=== PATIENT | female | born 1970 | race Caucasian/White ===

== ENCOUNTER 2024-11-23 03:10 | Observation (INO) ==
[2024-11-23 03:47] LABS: Appearance Urine Clear (Clear); Glucose Urine UA Negative (Negative)
[2024-11-23] MEDS: ACETAMINOPHEN 1,000 MG/100 ML VIAL IV STA (03:47)
[2024-11-23] MEDS: HYDROmorphone INJ 0.5 MG/0.5 ML SYR IV STA (03:48)
[2024-11-23] MEDS: ALUMINUM/MAGNESIUM SUSP 30 ML UDC PO STA (03:48)
[2024-11-23 03:49] LABS: Hematocrit (blood only) 40.0 % (37.0-47.0); Hemoglobin 14.3 g/dl (12.0-16.0); Immature Granulocytes # (auto) 0.10 K/uL (0.01-0.20); Immature Granulocytes % (auto) 0.9 %; Mean Corpuscular Hemoglobin 31.7 pg (25.0-34.0); Mean Corpuscular Volume 88.7 fL (80.0-100.0); Platelet Count 280 K/uL (130-400); RDW Standard Deviation 42.1 fL (36.4-46.3); Red Blood Count 4.51 M/uL (4.20-5.40); White Blood Count 11.62 K/ul (4.8-10.8)
[2024-11-23] MEDS: OPTIRAY 320 100ml IV ONE ×2 (03:59→08:51)
--- NOTE | 2024-11-23 04:01 | Emergency Department Note ---
Impression & Plan Continuous severe abdominal pain, Abdominal pain ED Provider Note NAME: GHAZAL DAIGLE AGE: 54 SEX: F : 1970 ARRIVES VIA: Walk-In INFORMANT: Patient, ED PROVIDER(S): Alejandra Camara MD CHIEF COMPLAINT: Abdominal pain HPI: This is a 54-year-old female presenting for left abdominal pain. Patient states she has been to the hospital 2 times previously with negative workup. She has had persistent pain for about 3 weeks. She notes sharp pain to the left upper quadrant that is persistent. No change with eating or drinking. She had been discharged on oxycodone from outside hospital. She had negative CT imaging over the past 3 weeks. Otherwise she is here because the pain is severe. She reports no nausea, vomiting with this. No shortness of breath or chest pain. No diarrhea, constipation. ROS: See above HPI for pertinent positives & negatives. A total of 10 systems reviewed and were otherwise negative. PAST MEDICAL HISTORY: See Below PAST SURGICAL HISTORY: See Below FAMILY HISTORY: See Below SOCIAL HISTORY: See Below HOME MEDICATIONS: See Below ALLERGIES: See Below VITALS: See Below PHYSICAL EXAMINATION: General: resting comfortably in no acute distress Head: Normocephalic and atraumatic Eyes: Normal inspection, extraocular muscles intact Ear, nose, throat: Normal external exam Neck: Normal range of motion Respiratory: lungs clear to auscultation bilaterally Cardiovascular: Regular rate/rhythm, no murmur GI: soft, left mid abdominal pain, no rebound Extremities: nontender, moves all extremities Neuro: The patient awake and alert, appropriately conversive, no focal deficits, symmetric faces Skin: Warm, dry, and intact MEDICAL DECISION MAKING: This is a 54-year-old female present for left abdominal pain. Patient has pain in the mid abdomen on the left side. No right upper quadrant tenderness, Shipley sign. Consider diverticulitis, appendicitis, cholecystitis, volvulus, SBO. - Slight hyponatremia is noted. Otherwise no significant lab normalities. -Urinalysis reveals signs of possible UTI/contamination -CT imaging reveals multiple findings including uterine fibroid, poss pelvic congestion syndrome, as well as small bowel loop thickening concerning for infectious/inflammatory etiology. Read does state need for dedicated further evaluation with CT/MR enterography -Due to patient's persistent pain despite pain medication including Tylenol, Maalox, Dilaudid, will admit the patient for further pain control as well as imaging -Care shows Dr. Smith Differential diagnosis: diverticulitis, appendicitis, cholecystitis, volvulus, SBO. Independent History obtained from: Daughter Diagnostics interpreted by me: ECG: None Cardiac Monitoring: An order was placed for continuous cardiac monitoring. The monitor shows a rate 71 with sinus Past Med/Surg History Problem List (Updated 11/23/24 @ 15:15 by Alejandra Camara MD) Suspected UTI Irritable bowel syndrome Costochondritis, acute Abdominal pain (Acute) Continuous severe abdominal pain (Acute) Social History Smoking Status: Never smoker Hx Alcohol Use: No Hx Substance Use: No Preferred Language: Yemeni Communication Ability: Effective Aluminum Polisher Required: Yes Beliefs That Will Affect Care: None Current Living Situation Comment: lives with brother/grandaughter Other Information That Helps Us Care for You: No Feels Safe at Home: Yes Safety Concerns: Feels Safe At This Time Assistive Devices: None Assistive Devices Comment: reading glasses Allergies Allergies Allergy/AdvReac Type Severity Reaction Status Date / Time No Known Allergies Allergy Unverified 11/23/24 09:39 Home Meds Home Medications Medication Instructions Recorded Confirmed cefpodoxime 200 mg tablet 200 mg PO BID 11/23/24 11/23/24 famotidine 20 mg tablet 20 mg PO DAILY 11/23/24 11/23/24 losartan 25 mg tablet 25 mg PO DAILY 11/23/24 11/23/24 omeprazole 20 mg tablet,delayed 20 mg PO DAILY 11/23/24 11/23/24 release sertraline 25 mg tablet (Zoloft) 25 mg PO DAILY 11/23/24 11/23/24 Results & Data (ED) Vital Signs Vital Signs - 24 hr 11/23/24 03:14 11/23/24 03:27 11/23/24 03:41 Temperature 36.9 C Temperature Source Temporal Artery Scan Pulse Rate 73 71 Pulse Rate [Right Finger] 71 Pulse Rhythm Regular Regular Pulse Strength Normal Respiratory Rate 22 20 20 Respiratory Effort / Characteristics Non-Labored Spontaneous Respiratory Depth Normal Normal Respiratory Pattern Regular Blood Pressure 100/64 Blood Pressure [Left Arm] 115/59 L Blood Pressure Mean 76 Blood Pressure Mean [Left Arm] 77 Blood Pressure Position Sitting Pulse Oximetry 96 95 95 Oxygen Delivery Method Room Air Room Air Room Air Sepsis Recent Fever Within 48 Hours No Sepsis New/Unexplained Change in Mental Status No Sepsis Action Taken by Nursing No Action Required 11/23/24 03:45 11/23/24 05:11 11/23/24 06:00 Temperature Temperature Source Pulse Rate 68 Pulse Rate [Right Finger] 71 71 Pulse Rhythm Pulse Strength Respiratory Rate 16 16 Respiratory Effort / Characteristics Non-Labored Spontaneous Respiratory Depth Normal Normal Respiratory Pattern Regular Blood Pressure Blood Pressure [Left Arm] 139/83 142/88 H Blood Pressure Mean Blood Pressure Mean [Left Arm] 101 106 Blood Pressure Position Pulse Oximetry 95 98 Oxygen Delivery Method Room Air Sepsis Recent Fever Within 48 Hours Sepsis New/Unexplained Change in Mental Status Sepsis Action Taken by Nursing Laboratory Data 11/23/24 03:27 11/23/24 03:27 Lab Results 11/23/24 11/23/24 Range/Units 03:27 03:43 WBC 11.62 H (4.8-10.8) K/ul RBC 4.51 (4.20-5.40) M/uL Hgb 14.3 (12.0-16.0) g/dl POC Hgb 12.9 (12.0-16.0) g/dl Hct 40.0 (37.0-47.0) % POC Hct 38 (37-47) % MCV 88.7 (80.0-100.0) fL MCH 31.7 (25.0-34.0) pg MCHC 35.8 (32.0-36.0) g/dL RDW Std Deviation 42.1 (36.4-46.3) fL RDW Coeff of Rosi 12.8 (11.5-14.5) % Plt Count 280 (130-400) K/uL MPV 9.6 (9.4-12.4) fL Immature Gran % (Auto) 0.9 % Neut % (Auto) 65.4 % Lymph % (Auto) 26.0 % [place] % (Auto) 6.2 % Eos % (Auto) 1.2 % Baso % (Auto) 0.3 % Neut # (Auto) 7.60 H (1.40-6.50) K/uL Lymph # (Auto) 3.02 (1.20-3.40) K/uL [place] # (Auto) 0.72 H (0.11-0.59) K/uL Eos # (Auto) 0.14 (0.00-0.50) K/uL Baso # (Auto) 0.04 (0.00-0.20) K/uL Immature Gran # (Auto) 0.10 (0.01-0.20) K/uL POC Sodium 132 L (135-144) mmol/L Sodium 131 L (136-145) mmol/L POC Potassium 3.7 (3.3-5.0) mmol/L Potassium 3.9 (3.5-5.1) mmol/L POC Chloride 100 L (101-112) mmol/L Chloride 100 (98-107) mmol/L Carbon Dioxide 24 (21-32) mmol/L POC Total CO2 22 L (24-31) mmol/L Anion Gap 7 (3-11) POC Anion Gap 14.0 L (16-25) mmol/L POC BUN 29 H (7-18) mg/dl BUN 29 H (6-23) mg/dl Creatinine 0.99 (0.6-1.2) mg/dl POC Creatinine 1.0 (0.6-1.3) mg/dl Est Cr Clr Drug Dosing 60.1 ml/min eGFR 67.34 BUN/Creatinine Ratio 29.3 H (10-20) Glucose 95 (70-99(Fasting)) mg/dl POC Glucose (other) 99 (70-99) mg/dl Calcium 9.0 (8.6-10.3) mg/dl POC Ioniz Calcium [place] 1.18 (1.12-1.32) mmol/l Total Bilirubin 0.3 (0.2-1.0) mg/dl AST 19 (13-39) U/L ALT 21 (7-52) U/L Alkaline Phosphatase 85 (34-104) U/L Troponin I High Sens 4.2 (0-14) pg/ml Total Protein 6.5 (6.0-8.3) gm/dl Albumin 4.2 (3.4-5.0) gm/dl Globulin 2.3 L (2.5-4.0) gm/dl Albumin/Globulin Ratio 1.8 (0.9-2) Lipase 31 (11-82) U/L Urine Color Yellow Urine Appearance Clear (Clear) Urine pH 6.5 (4.5-7.5) Ur Specific Roll 1.015 (1.000-1.030) Urine Protein Negative (Negative) Urine Glucose (UA) Negative (Negative) Urine Ketones Negative (Negative) Urine Blood Trace-intact H (Negative) Urine Nitrite Negative (Negative) Urine Bilirubin Negative (Negative) Urine Urobilinogen Negative (Negative) Ur Leukocyte Esterase 2+ H (Negative) Urine RBC 3-5 H (0-2) /hpf Urine WBC 11-20 H (0-5) /hpf Ur Epithelial Cells 3-5 H (0-2) /hpf Urine Bacteria 1+ H (None Seen) Urine Yeast Present A (None Prsent) Urine Comment Administered Medications Acetaminophen (Acetaminophen 500 Mg Tab) 1,000 mg PO TID SOUTH Stop: 12/23/24 13:59 Last Admin: 11/23/24 14:22 Dose: 1,000 mg Documented By: EW Dicyclomine HCl (Dicyclomine Hcl 10 Mg Cap) 10 mg PO QID SOUTH Stop: 12/23/24 12:59 Last Admin: 11/23/24 13:21 Dose: 10 mg Documented By: RICKIEB Ceftriaxone Sodium (Rocephin) 2,000 mg in 50 mls @ 100 mls/hr IV Q24H SOUTH Stop: 11/28/24 08:02 Last Infusion: 11/23/24 13:16 Dose: Infused Documented By: NRAlba Admin: 11/23/24 09:12 Dose: 100 mls/hr Documented By: TDM Losartan Potassium (Losartan Potassium 25 Mg Tab) 25 mg PO DAILY SOUTH Stop: 12/23/24 08:59 Last Admin: 11/23/24 09:13 Dose: 25 mg Documented By: TDM Polyethylene Glycol (Polyethylene (Miralax) 17 Gm Pack) 17 gm PO DAILY SOUTH Stop: 12/23/24 13:44 Last Admin: 11/23/24 14:22 Dose: 17 gm Documented By: EW Discontinued Medications Al Hydrox/Mg Hydrox/Simethicone (Aluminum/Magnesium Susp 30 Ml Udc) 30 ml PO NOW STA Stop: 11/23/24 03:44 Last Admin: 11/23/24 03:48 Dose: 30 ml Documented By: NAW Hydromorphone HCl (Hydromorphone Inj 0.5 Mg/0.5 Ml Syr) 0.5 mg IV NOW STA Stop: 11/23/24 03:44 Last Admin: 11/23/24 03:48 Dose: 0.5 mg Documented By: JOSEP Acetaminophen (Ofirmev) 1,000 mg in 100 mls @ 400 mls/hr IV NOW STA Stop: 11/23/24 03:57 Last Infusion: 11/23/24 04:59 Dose: Infused Documented By: Admin: 11/23/24 03:47 Dose: 400 mls/hr Documented By: NAW Dextrose/Sodium Chloride (D5w And Nss) 1,000 mls @ 125 mls/hr IV .Q8H SOUTH Stop: 11/26/24 08:14 Last Infusion: 11/23/24 14:16 Dose: Infused Documented By: Admin: 11/23/24 09:13 Dose: 125 mls/hr Documented By: MINA Famotidine (Pepcid 20mg Iv Push) 20 mg in 5 mls @ 2.5 mls/min IV Q12H SOUTH Stop: 12/23/24 08:59 Last Admin: 11/23/24 09:13 Dose: 2.5 mls/min Documented By: MINA Pantoprazole Sodium (Protonix) 40 mg in 10 mls @ 5 mls/min IV DAILY SOUTH Stop: 12/23/24 08:59 Last Admin: 11/23/24 09:12 Dose: 5 mls/min Documented By: MINA Ioversol (Optiray 320 100ml) 100 ml IV ONCE ONE Stop: 11/23/24 04:00 Last Admin: 11/23/24 03:59 Dose: 93 ml Documented By: LEYDI Ioversol (Optiray 320 100ml) 94 ml IV ONCE ONE Stop: 11/23/24 08:52 Last Admin: 11/23/24 08:51 Dose: 94 ml Documented By: JOSE Ketorolac Tromethamine (Ketorolac 30 Mg/Ml Vial) 30 mg IV NOW ONE Stop: 11/23/24 13:35 Last Admin: 11/23/24 14:22 Dose: 30 mg Documented By: ELIAS Pantoprazole Sodium (Pantoprazole 40 Mg Tab) 40 mg PO NOW STA Stop: 11/23/24 03:44 Last Admin: 11/23/24 03:48 Dose: 40 mg Documented By: JOSEP Sertraline HCl (Sertraline Hcl 50 Mg Tablet) 25 mg PO DAILY SOUTH Stop: 12/23/24 08:59 Last Admin: 11/23/24 09:13 Dose: 25 mg Documented By: TDM Imaging Data Radiologist's Impression: Abdomen/Pelvis CT 11/23/24 03:43 EXAM: CT abd pelvis IV con only CLINICAL HISTORY: L abd pain, diverticulitis TECHNIQUE: Contiguous axial images were obtained from the level of the diaphragm to the pubic symphysis with intravenous contrast. Coronal and sagittal reconstructions were likewise performed and indicated to increase the sensitivity for detecting clinically relevant pathology. If IV contrast material had not been administered, the likelihood of detecting abnormalities relevant to the patient's condition would have been substantially decreased. CT scan was performed according to ALARA (as low as reasonable achievable). COMPARISON: None. FINDINGS: The visualized lung bases are clear. The liver is normal in size and attenuation. Small cyst is noted in left lobe of liver. There is no intra or extrahepatic biliary ductal dilatation. Hepatic vasculature is patent. The gallbladder is present. The spleen, pancreas, and adrenal glands are unremarkable. The kidneys are normal in size and attenuation. There is no hydronephrosis or perinephric fat stranding. No renal calculi or renal masses are identified. The ureters are normal in caliber and no ureteral calculi are seen. The bladder is normal in contour. Pelvic viscera are unremarkable. About 17 x 17 mm sized hypodense lesion is noted involving anterior wall of uterus -possibility of uterine fibroid. No focal or diffuse bowel wall thickening or evidence of bowel obstruction is identified. Multiple fluid filled small bowel loops noted with multifocal segmental intervening collapsed small bowel loops showing suspicious wall thickening might represent infective/inflammatory etiology The appendix is visualized in the right lower quadrant and appears within normal limits. Abdominal and pelvic vasculature is patent. No adenopathy or fluid collections are seen. No aggressive appearing osseous lesions are identified. Mildly dilated bilateral gonadal veins - possibility of pelvic congestion syndrome. Approximately 59 x 29 mm sized hypodense lesion with peripheral calcification is noted involving left gluteal region in the subcutaneous plane- appears benign/chronic inflammatory change etiology likely. IMPRESSION: 1. Small uterine fibroid. 2. Mildly dilated bilateral gonadal veins - possibility of pelvic congestion syndrome. 3. Small hepatic cyst. 4. No obvious diverticulitis changes. 5. Approximately 59 x 29 mm sized hypodense lesion with peripheral calcification is noted involving left gluteal region in the subcutaneous plane- appears benign/chronic inflammatory change etiology likely. 6. Multiple fluid filled small bowel loops noted with multifocal segmental intervening collapsed small bowel loops showing suspicious wall thickening might represent infective/inflammatory etiology. Needs dedicated further evaluation with CT/MR enterography Electronically signed by Jameson King 11-23-2024 04:[address] 11/23/24 06:09 CT ENTEROGRAPHY CLINICAL HISTORY: Abdominal pain. ct findings. COMPARISON STUDY: CT of the abdomen and pelvis performed earlier today. TECHNIQUE: The patient ingested oral contrast as per the enterography protocol. Axial images of the abdomen and pelvis were then obtained following intravenous injection of 94 cc of Optiray 320 IV. Sagittal and coronal reformats were viewed. Automated exposure control was utilized for the study. A dose lowering technique was utilized adhering to the principles of ALARA. FINDINGS: Visualized lung bases are unremarkable. Bilateral breast implants are partially imaged. There is no pneumatosis, free air or portal venous gas. A 1.2 cm low-attenuation lateral segment hepatic lesion favors a cyst. There are no suspicious hepatic lesions. There is no biliary or pancreatic ductal dilatation. The spleen, adrenal glands, kidneys and pancreas are unremarkable. There is no hydronephrosis. A 6.7 x 3.2 cm rim-enhancing subcutaneous collection within the left buttock contains peripheral calcific densities. This is likely chronic and of doubtful significance. There is no evidence for a bowel obstruction. No bowel wall thickening is present. There is no mucosal hyperemia. There is no small bowel lesion by CT. Small bowel is fluid-filled, in part due to the oral contrast. The small bowel is mildly fluid-filled on prior CT. There is no evidence for acute appendicitis. Major vasculature is patent. A 2.3 cm fibroid is present. There is no ascites. There is no lymphadenopathy. Contrast within the bladder is from recent contrast-enhanced CT. IMPRESSION: 1. No bowel obstruction. No bowel wall thickening. No mucosal hyperemia. 2. Fluid-filled small bowel, in part due to the administered oral contrast. The small bowel was mildly fluid-filled on prior CT. This is likely within normal limits although could be seen in setting of enteritis. 3. No evidence for acute appendicitis. ACT 112: Negative or not required by law. Electronically signed by: To Carlson M.D. 11/23/2024 9:17 AM Discharge Plan Visit Data Chief Complaint: Abdominal Pain Stated Complaint: ABD PAIN ED Provider: Alejandra Camara Discharge Problem: Continuous severe abdominal pain, Abdominal pain Patient Disposition: Admitted As Inpatient Condition: Fair Discharge Instructions Interventions: ED Discharge Assessment Last Done: 11/23/24 07:52 Discharge Problem: Abdominal pain Qualifiers: Abdominal location: left upper quadrant Qualified Code(s): R10.12 - Left upper quadrant pain
[2024-11-23 04:08] LABS: Alanine Aminotransferase 21.0 U/L (7-52); Albumin Globulin Ratio 1.8 (0.9-2); Alkaline Phosphatase 85.0 U/L (34-104); Anion Gap 7.0 (3-11); Bilirubin,Total 0.3 mg/dl (0.2-1.0); Blood Urea Nitrogen 29.0 mg/dl (6-23); Calcium 9.0 mg/dl (8.6-10.3); Carbon Dioxide 24.0 mmol/L (21-32); Chloride 100.0 mmol/L (98-107); Creatinine Clr Calc Pharmacy 60.1 ml/min; Globulin 2.3 gm/dl (2.5-4.0); Glucose 95.0 mg/dl (70-99(Fasting)); Lipase 31.0 U/L (11-82); Potassium 3.9 mmol/L (3.5-5.1); Sodium 131.0 mmol/L (136-145); Total Protein 6.5 gm/dl (6.0-8.3)
--- NOTE | 2024-11-23 04:57 | CT Scan Report ---
EXAM: CT abd pelvis IV con only CLINICAL HISTORY: L abd pain, diverticulitis TECHNIQUE: Contiguous axial images were obtained from the level of the diaphragm to the pubic symphysis with intravenous contrast. Coronal and sagittal reconstructions were likewise performed and indicated to increase the sensitivity for detecting clinically relevant pathology. If IV contrast material had not been administered, the likelihood of detecting abnormalities relevant to the patient's condition would have been substantially decreased. CT scan was performed according to ALARA (as low as reasonable achievable). COMPARISON: None. FINDINGS: The visualized lung bases are clear. The liver is normal in size and attenuation. Small cyst is noted in left lobe of liver. There is no intra or extrahepatic biliary ductal dilatation. Hepatic vasculature is patent. The gallbladder is present. The spleen, pancreas, and adrenal glands are unremarkable. The kidneys are normal in size and attenuation. There is no hydronephrosis or perinephric fat stranding. No renal calculi or renal masses are identified. The ureters are normal in caliber and no ureteral calculi are seen. The bladder is normal in contour. Pelvic viscera are unremarkable. About 17 x 17 mm sized hypodense lesion is noted involving anterior wall of uterus -possibility of uterine fibroid. No focal or diffuse bowel wall thickening or evidence of bowel obstruction is identified. Multiple fluid filled small bowel loops noted with multifocal segmental intervening collapsed small bowel loops showing suspicious wall thickening might represent infective/inflammatory etiology The appendix is visualized in the right lower quadrant and appears within normal limits. Abdominal and pelvic vasculature is patent. No adenopathy or fluid collections are seen. No aggressive appearing osseous lesions are identified. Mildly dilated bilateral gonadal veins - possibility of pelvic congestion syndrome. Approximately 59 x 29 mm sized hypodense lesion with peripheral calcification is noted involving left gluteal region in the subcutaneous plane- appears benign/chronic inflammatory change etiology likely. IMPRESSION: 1. Small uterine fibroid. 2. Mildly dilated bilateral gonadal veins - possibility of pelvic congestion syndrome. 3. Small hepatic cyst. 4. No obvious diverticulitis changes. 5. Approximately 59 x 29 mm sized hypodense lesion with peripheral calcification is noted involving left gluteal region in the subcutaneous plane- appears benign/chronic inflammatory change etiology likely. 6. Multiple fluid filled small bowel loops noted with multifocal segmental intervening collapsed small bowel loops showing suspicious wall thickening might represent infective/inflammatory etiology. Needs dedicated further evaluation with CT/MR enterography Electronically signed by Jameson King 11-23-2024 04:56 AM
[2024-11-23] MEDS ORDERED: HYDROmorphone INJ 0.5 MG/0.5 ML SYR IV PRN ×2 (08:03)
[2024-11-23] MEDS ORDERED: ONDANSETRON INJ 2 MG/ML 2 ML VIAL IV PRN (08:03)
--- NOTE | 2024-11-23 08:03 | History & Physical Report ---
Date of Service November 23, 2024 Assessment & Plan (1) Continuous severe abdominal pain: Plan: 54-year-old female unassigned patient with past med history significant for hypertension, GERD, depression presents with severe abdominal pain in the left upper quadrant. Patient is having this abdominal pain for last 3 weeks. It started when they were in [place]. She is from [facility]. She was in [place] ER couple of times. She was prescribed oxycodone. Last time in ER at [place] was recommend admission for IV pain meds but patient has to come to [facility] for her daughters school and did not get admitted. Patient is Nauruan- speaking. Daughter is helping with history. They came to [facility] for daughter school. Having severe pain in left upper quad abdominal . Associated with nausea. Constipated. Had bowel movement yesterday. Denies any blood in the stools. Micturating okay. No fevers. No chest pain or shortness of breath. No headache or runny nose or sore throat or cough. Hemodynamics are okay. Continued severe abdominal pain Going for last 3 weeks Started when they were in [place] States constipated CAT scan showing mildly dilated bilateral gonadal veins possibly pelvic congestion syndrome. Small uterine fibroid. Multiple fluid-filled small bowel loops noted with multifocal segmental intervening collapsed small bowel loops showing suspicious wall thickening might represent infectious/inflammatory etiology needs dedicated further evaluation with CT/MR enterography Peripheral calcifications seen in the left gluteal region appears benign/chronic inflammatory change N.p.o. for now. IV fluids Ordered CT enterography GI consult for further recommendation Pelvic congestion syndrome Possible cause of her pain Will consult BOILER WASHER Recent UTI On cefpodoxime. States took for 3 days. Prescribed for 7 days Will check UA Will place on IV Rocephin for now Hypertension On losartan GERD On omeprazole and famotidine Will place on IV famotidine and IV Protonix Depression On Zoloft Hyponatremia Sodium 131 Getting fluids Will follow labs DVT prophylaxis SCDs Disposition Medical floor Full code. History of Present Illness Chief Complaint: Abdominal pain Primary Care Provider: NO PCP 54-year-old female unassigned patient with past med history significant for hypertension, GERD, depression presents with severe abdominal pain in the left upper quadrant. Patient is having this abdominal pain for last 3 weeks. It started when they were in [place]. She is from [facility]. She was in [place] ER couple of times. She was prescribed oxycodone. Last time in ER at [place] was recommend admission for IV pain meds but patient has to come to [facility] for her daughters school and did not get admitted. Patient is Nauruan- speaking. Daughter is helping with history. They came to [facility] for daughter school. Having severe pain in left upper quad abdominal . Associated with nausea. Constipated. Had bowel movement yesterday. Denies any blood in the stools. Micturating okay. No fevers. No chest pain or shortness of breat h. No headache or runny nose or sore throat or cough. Hemodynamics are okay. Past medical history. As mentioned above. Past surgical history. Colonoscopy. Tonsillectomy. Breast surgery. Social history. No smoking. Alcohol rarely. No drug use. Family history. Mother had stroke. Home Medications Medication Instructions Recorded Confirmed Type cefpodoxime 200 mg tablet 200 mg PO BID 11/23/24 11/23/24 History famotidine 20 mg tablet 20 mg PO DAILY 11/23/24 11/23/24 History losartan 25 mg tablet 25 mg PO DAILY 11/23/24 11/23/24 History omeprazole 20 mg tablet,delayed 20 mg PO DAILY 11/23/24 11/23/24 History release sertraline 25 mg tablet (Zoloft) 25 mg PO DAILY 11/23/24 11/23/24 History Past Med/Surg History Problem List (Updated 11/23/24 @ 08:07 by Serjio Smith MD) Continuous severe abdominal pain Social History Smoking Status: Never smoker Preferred Language: Luxembourgish Feels Safe at Home: Yes Review of Systems Review of Systems: All systems reviewed & are unremarkable except as noted in HPI & below Physical Exam Physical Exam: General- seems in pain Head- atraumatic Eyes- PERRL. ENT- oropharynx clear Neck- supple, no JVD. Lungs- clear to auscultation no wheezing or crackles Heart- regular rhythm; no murmur, no gallop. Abdomen- normal bowel sounds, soft, tenderness in Left upper quadrant, no rebound tenderness, no distension. Extremities- no pretibial edema, no erythema seen Neuro- alert, oriented PERRL, no facial palsy; no dysarthria; moves extremities Results & Data Results & Data Vital Signs (Past 12 Hours) Vital Signs Temp Pulse Pulse Resp BP BP Pulse Ox 08/20/25 06:00 71 16 142/88 H 98 11/23/24 05:11 71 16 139/83 95 11/23/24 03:45 68 11/23/24 03:41 71 20 95 11/23/24 03:27 71 20 115/59 L 95 11/23/24 03:14 36.9 C 73 22 100/64 96 O2 Del Method 11/23/24 06:00 Room Air 11/23/24 05:11 11/23/24 03:45 11/23/24 03:41 Room Air 11/23/24 03:27 Room Air 11/23/24 03:14 Room Air Diagnostic Findings Laboratory Results WBC 11.62 K/ul (4.8-10.8) H 11/23/24 03:27 RBC 4.51 M/uL (4.20-5.40) 11/23/24 03:27 Hgb 14.3 g/dl (12.0-16.0) 11/23/24 03:27 POC Hgb 12.9 g/dl (12.0-16.0) 11/23/24 03:43 Hct 40.0 % (37.0-47.0) 11/23/24 03:27 POC Hct 38 % (37-47) 11/23/24 03:43 MCV 88.7 fL (80.0-100.0) 11/23/24 03:27 MCH 31.7 pg (25.0-34.0) 11/23/24 03:27 MCHC 35.8 g/dL (32.0-36.0) 11/23/24 03:27 RDW Std Deviation 42.1 fL (36.4-46.3) 11/23/24 03:27 RDW Coeff of Rosi 12.8 % (11.5-14.5) 11/23/24 03:27 Plt Count 280 K/uL (130-400) 11/23/24 03:27 MPV 9.6 fL (9.4-12.4) 11/23/24 03:27 Immature Gran % (Auto) 0.9 % 11/23/24 03:27 Neut % (Auto) 65.4 % 11/23/24 03:27 Lymph % (Auto) 26.0 % 11/23/24 03:27 [place] % (Auto) 6.2 % 11/23/24 03:27 Eos % (Auto) 1.2 % 11/23/24 03:27 Baso % (Auto) 0.3 % 11/23/24 03:27 Neut # (Auto) 7.60 K/uL (1.40-6.50) H 11/23/24 03:27 Lymph # (Auto) 3.02 K/uL (1.20-3.40) 11/23/24 03:27 [place] # (Auto) 0.72 K/uL (0.11-0.59) H 11/23/24 03:27 Eos # (Auto) 0.14 K/uL (0.00-0.50) 11/23/24 03:27 Baso # (Auto) 0.04 K/uL (0.00-0.20) 11/23/24 03:27 Immature Gran # (Auto) 0.10 K/uL (0.01-0.20) 11/23/24 03:27 POC Sodium 132 mmol/L (135-144) L 11/23/24 03:43 Sodium 131 mmol/L (136-145) L 11/23/24 03:27 POC Potassium 3.7 mmol/L (3.3-5.0) 11/23/24 03:43 Potassium 3.9 mmol/L (3.5-5.1) 11/23/24 03:27 POC Chloride 100 mmol/L (101-112) L 11/23/24 03:43 Chloride 100 mmol/L (98-107) 11/23/24 03:27 Carbon Dioxide 24 mmol/L (21-32) 11/23/24 03:27 POC Total CO2 22 mmol/L (24-31) L 11/23/24 03:43 Anion Gap 7 (3-11) 11/23/24 03:27 POC Anion Gap 14.0 mmol/L (16-25) L 11/23/24 03:43 POC BUN 29 mg/dl (7-18) H 11/23/24 03:43 BUN 29 mg/dl (6-23) H 11/23/24 03:27 Creatinine 0.99 mg/dl (0.6-1.2) 11/23/24 03:27 POC Creatinine 1.0 mg/dl (0.6-1.3) 11/23/24 03:43 Est Cr Clr Drug Dosing 60.1 ml/min 11/23/24 03:27 eGFR 67.34 11/23/24 03:27 BUN/Creatinine Ratio 29.3 (10-20) H 11/23/24 03:27 Glucose 95 mg/dl (70-99(Fasting)) 11/23/24 03:27 POC Glucose (other) 99 mg/dl (70-99) 11/23/24 03:43 Calcium 9.0 mg/dl (8.6-10.3) 11/23/24 03:27 POC Ioniz Calcium [place] 1.18 mmol/l (1.12-1.32) 11/23/24 03:43 Total Bilirubin 0.3 mg/dl (0.2-1.0) 11/23/24 03:27 AST 19 U/L (13-39) 11/23/24 03:27 ALT 21 U/L (7-52) 11/23/24 03:27 Alkaline Phosphatase 85 U/L (34-104) 11/23/24 03:27 Troponin I High Sens 4.2 pg/ml (0-14) 11/23/24 03:27 Total Protein 6.5 gm/dl (6.0-8.3) 11/23/24 03:27 Albumin 4.2 gm/dl (3.4-5.0) 11/23/24 03:27 Globulin 2.3 gm/dl (2.5-4.0) L 11/23/24 03:27 Albumin/Globulin Ratio 1.8 (0.9-2) 11/23/24 03:27 Lipase 31 U/L (11-82) 11/23/24 03:27 Urine Color Yellow 11/23/24 03:27 Urine Appearance Clear (Clear) 11/23/24 03:27 Urine pH 6.5 (4.5-7.5) 11/23/24 03:27 Ur Specific [place] 1.015 (1.000-1.030) 11/23/24 03:27 Urine Protein Negative (Negative) 11/23/24 03:27 Urine Glucose (UA) Negative (Negative) 11/23/24 03:27 Urine Ketones Negative (Negative) 11/23/24 03:27 Urine Blood Trace-intact (Negative) H 11/23/24 03:27 Urine Nitrite Negative (Negative) 11/23/24 03:27 Urine Bilirubin Negative (Negative) 11/23/24 03:27 Urine Urobilinogen Negative (Negative) 11/23/24 03:27 Ur Leukocyte Esterase 2+ (Negative) H 11/23/24 03:27 Urine RBC 3-5 /hpf (0-2) H 11/23/24 03:27 Urine WBC 11-20 /hpf (0-5) H 11/23/24 03:27 Ur Epithelial Cells 3-5 /hpf (0-2) H 11/23/24 03:27 Urine Bacteria 1+ (None Seen) H 11/23/24 03:27 Urine Yeast Present (None Prsent) A 11/23/24 03:27 Urine Comment 11/23/24 03:27 Impressions Abdomen/Pelvis CT 11/23/24 03:43 EXAM: CT abd pelvis IV con only CLINICAL HISTORY: L abd pain, diverticulitis TECHNIQUE: Contiguous axial images were obtained from the level of the diaphragm to the pubic symphysis with intravenous contrast. Coronal and sagittal reconstructions were likewise performed and indicated to increase the sensitivity for detecting clinically relevant pathology. If IV contrast material had not been administered, the likelihood of detecting abnormalities relevant to the patient's condition would have been substantially decreased. CT scan was performed according to ALARA (as low as reasonable achievable). COMPARISON: None. FINDINGS: The visualized lung bases are clear. The liver is normal in size and attenuation. Small cyst is noted in left lobe of liver. There is no intra or extrahepatic biliary ductal dilatation. Hepatic vasculature is patent. The gallbladder is present. The spleen, pancreas, and adrenal glands are unremarkable. The kidneys are normal in size and attenuation. There is no hydronephrosis or perinephric fat stranding. No renal calculi or renal masses are identified. The ureters are normal in caliber and no ureteral calculi are seen. The bladder is normal in contour. Pelvic viscera are unremarkable. About 17 x 17 mm sized hypodense lesion is noted involving anterior wall of uterus -possibility of uterine fibroid. No focal or diffuse bowel wall thickening or evidence of bowel obstruction is identified. Multiple fluid filled small bowel loops noted with multifocal segmental intervening collapsed small bowel loops showing suspicious wall thickening might represent infective/inflammatory etiology The appendix is visualized in the right lower quadrant and appears within normal limits. Abdominal and pelvic vasculature is patent. No adenopathy or fluid collections are seen. No aggressive appearing osseous lesions are identified. Mildly dilated bilateral gonadal veins - possibility of pelvic congestion syndrome. Approximately 59 x 29 mm sized hypodense lesion with peripheral calcification is noted involving left gluteal region in the subcutaneous plane- appears benign/chronic inflammatory change etiology likely. IMPRESSION: 1. Small uterine fibroid. 2. Mildly dilated bilateral gonadal veins - possibility of pelvic congestion syndrome. 3. Small hepatic cyst. 4. No obvious diverticulitis changes. 5. Approximately 59 x 29 mm sized hypodense lesion with peripheral calcification is noted involving left gluteal region in the subcutaneous plane- appears benign/chronic inflammatory change etiology likely. 6. Multiple fluid filled small bowel loops noted with multifocal segmental intervening collapsed small bowel loops showing suspicious wall thickening might represent infective/inflammatory etiology. Needs dedicated further evaluation with CT/MR enterography Electronically signed by Jameson King 11-23-2024 04:56 AM ECG Additional Comments: ECG. Normal sinus rhythm rate of 70. Q waves in inferior leads. QTc 444. Code Status & VTE Plan VTE Prophylaxis Plan VTE Prophylaxis will be ordered: Yes
[2024-11-23] MEDS ORDERED: POLYETHYLENE (MIRALAX) 17 GM PACK PO PRN (08:30)
[2024-11-23] MEDS: PANTOprazole 40 MG/10 ML SYR IV SCH (09:12)
[2024-11-23] MEDS: cefTRIAXone SODIUM 2,000 MG/50 ML BAG IV SCH (09:12)
[2024-11-23] MEDS: D5W AND NSS 1,000 ML IV SCH (09:13)
[2024-11-23] MEDS: SERTRALINE HCL 50 MG TABLET PO SCH (09:13)
[2024-11-23] MEDS: FAMOTIDINE 20MG IV PUSH 20 MG/5 ML SYR IV SCH (09:13)
[2024-11-23] MEDS: LOSARTAN POTASSIUM 25 MG TAB PO SCH (09:13)
--- NOTE | 2024-11-23 09:18 | CT Scan Report ---
CT ENTEROGRAPHY CLINICAL HISTORY: Abdominal pain. ct findings. COMPARISON STUDY: CT of the abdomen and pelvis performed earlier today. TECHNIQUE: The patient ingested oral contrast as per the enterography protocol. Axial images of the a bdomen and pelvis were then obtained following intravenous injection of 94 cc of Optiray 320 IV. Sagi ttal and coronal reformats were viewed. Automated exposure control was utilized for the study. A dos e lowering technique was utilized adhering to the principles of ALARA. FINDINGS: Visualized lung bases are unremarkable. Bilateral breast implants are partially imaged. The re is no pneumatosis, free air or portal venous gas. A 1.2 cm low-attenuation lateral segment hepatic lesion favors a cyst. There are no suspicious hepatic lesions. There is no biliary or pancreatic li belgica dilatation. The spleen, adrenal glands, kidneys and pancreas are unremarkable. There is no hydron ephrosis. A 6.7 x 3.2 cm rim-enhancing subcutaneous collection within the left buttock contains perip heral calcific densities. This is likely chronic and of doubtful significance. There is no evidence f or a bowel obstruction. No bowel wall thickening is present. There is no mucosal hyperemia. There is no small bowel lesion by CT. Small bowel is fluid-filled, in part due to the oral contrast. The small bowel is mildly fluid-filled on prior CT. There is no evidence for acute appendicitis. Major vascula ture is patent. A 2.3 cm fibroid is present. There is no ascites. There is no lymphadenopathy. Contra st within the bladder is from recent contrast-enhanced CT. IMPRESSION: 1. No bowel obstruction. No bowel wall thickening. No mucosal hyperemia. 2. Fluid-filled small bowel, in part due to the administered oral contrast. The small bowel was mildl y fluid-filled on prior CT. This is likely within normal limits although could be seen in setting of enteritis. 3. No evidence for acute appendicitis. ACT 112: Negative or not required by law. Electronically signed by: To Carlson M.D. 11/23/2024 9:17 AM
--- NOTE | 2024-11-23 11:24 | Consultation ---
Date of Consultation November 23, 2024 Assessment & Plan (1) Continuous severe abdominal pain: Physical exam revealed tenderness of the spleen. Pelvic exam did not reveal any pelvic tenderness. There is no physical evidence that present discomfort is due to pelvic congestion syndrome Plan Evaluation of splenic tenderness History of Present Illness Requesting Physician: Jax Reason for Consultation: Left upper quadrant pain. CT scan showing possible pelvic congestion syndrome Attending Physician: Serjio Smith MD History of Present Illness Patient is a 54-year-old 5 para 4 history of 1 first trimester miscarriage. General health is complicated by high blood pressure depression and anxiety. Patient underwent menopause 5 years ago. Has had no recent postmenopausal bleeding or symptoms. Last Pap smear was in January 2024. Status post breast augmentation 4 years ago status post lipo suction 10 years ago. Patient complains of left upper quadrant pain present for 3 weeks. Pain has been consistent and getting progressively worse. Patient has been treated with anti-inflammatory medications and is on a course of antibiotics at the present time. Patient was seen in the emergency room in [place]. Given pain medication. At that time was advised to have an admission but declined. Allergies Allergy/AdvReac Type Severity Reaction Status Date / Time No Known Allergies Allergy Unverified 11/23/24 09:39 Home Medications Medication Instructions Recorded Confirmed Type cefpodoxime 200 mg tablet 200 mg PO BID 11/23/24 11/23/24 History famotidine 20 mg tablet 20 mg PO DAILY 11/23/24 11/23/24 History losartan 25 mg tablet 25 mg PO DAILY 11/23/24 11/23/24 History omeprazole 20 mg tablet,delayed 20 mg PO DAILY 11/23/24 11/23/24 History release sertraline 25 mg tablet (Zoloft) 25 mg PO DAILY 11/23/24 11/23/24 History Patient History Social History Smoking Status: Never smoker Preferred Language: Cook Islander Feels Safe at Home: Yes Physical Exam Physical Exam: Patient is well-developed well-nourished 54-year-old female alert and oriented x 3 cooperative in no acute distress. Trachea was midline. There was no cervical adenopathy. Extraocular movements were intact. Oral hygiene was good. Heart had a regular rhythm and S2 and S1 were normal. Lungs are clear to auscultation percussion. Breast examination was status post augmentation. Extensive's scar present. T shaped scar in the lower breast along with a circumferential scar around the areola. Breast implants were palpable. There was no tenderness or encapsulation noted on exam. Abdominal exam was soft and nontender to palpation except for the left upper quadrant. Patient complained of pain on palpation left side under the rib cage. And posteriorly along the back. She also complains of some discomfort when she moved in this area. Pelvic exam revealed a normal-appearing cervix. Perineum was well-healed. Bimanual exam did not reveal any pelvic tenderness or pain on motion of the cervix. There was no calf tenderness. Results & Data Vital Signs (Past 12 Hours) Vital Signs Temp Pulse Pulse Resp BP BP Pulse Ox 11/23/24 08:03 61 20 124/76 95 11/23/24 06:00 71 16 142/88 H 98 11/23/24 05:11 71 16 139/83 95 11/23/24 03:45 68 11/23/24 03:41 71 20 95 11/23/24 03:27 71 20 115/59 L 95 11/23/24 03:14 36.9 C 73 22 100/64 96 O2 Del Method 11/23/24 08:03 Room Air 11/23/24 06:00 Room Air 11/23/24 05:11 11/23/24 03:45 11/23/24 03:41 Room Air 11/23/24 03:27 Room Air 11/23/24 03:14 Room Air Diagnostic Findings Small uterine fibroid Possible pelvic congestion syndrome
--- NOTE | 2024-11-23 12:57 | Gastrointestinal Consultation ---
Date of Consultation November 23, 2024 Assessment & Plan (1) Abdominal pain: Non specific, no acute findings on work-up here or in [place]. Suspicious for IBS. -Would not recommend narcotics as this will worsen her constipation -Add Bentyl 10 mg QID -CORE SUCKER consulted as well -Outpatient follow-up with GI in [place] Visit conducted via interpreter and translator services. Supervising Physician Co-Signing Physician Notes Maltese speaking 54-year-old female. Interview facilitated through professional fire protection equipment technician. Has a history of gastritis and irritable bowel syndrome. Was traveling in [place] 3 to 4 weeks ago states she has been feeling not well since that time with abdominal bloating and sharp left lower quadrant pain. She took what sounds like Levsin sublingual yesterday x 2 with no improvement. She was recently admitted to [facility] with similar problems. She states investigations were negative. Patient denies hematemesis melena hematochezia. Testing here is relatively normal she has a minimally elevated white count. Slight hyponatremia and slight elevated BUN. Initially CT scan question enteritis though a CT enterography really does not show significant pathology of the GI tract. Her abdominal examination is relatively benign. Bowel sounds are normal. There is no guarding rebound rigidity or tenderness. No definite acute abdominal issues. May reflect an exacerbation of her underlying irritable bowel. In the past she has gotten some relief with antispasmodics. Will try her on some Bentyl. No indication for endoscopy at this time. CT shows no evidence for diverticulitis colonic wall thickening. I would follow-up on her CBC and BMP if she remains to document resolution of these minor abnormalities.. History of Present Illness Reason for Consultation: Abdominal pain Attending Physician: Serjio Smith MD History of Present Illness Patient is a 54 yo female who presents for 3 weeks of abdominal pain on the left side of her abdomen. She was in [place] and developed the pain after eating. She notes the pain has worsened since that time. The pain feels like a a stabbing pain that prevents her from breathing and she feels that something "may burst." She notes a history of chronic stomach issues that she reports are related to a diagnosis of gastritis and irritable bowel syndrome. She last had Colonoscopy evaluation 2 years ago that was unremarkable. An EGD 1 year ago was normal as well. She was having these procedures done because she was having worsening acid reflux and she was due for routine colon surveillance. She notes that these symptoms are different than her previous symptoms because it is more severe pain than previous pain. The pain radiates to her rib cage. In the past she has treated her IBS with sublingual medication but she is not sure what it was. She notes Hydrocodone did not help her pain. This was prescribed in a hospital in [place] for the pain. This prescription was filled on 11/19/25. She was in [facility] there twice on that date for this same issue. No findings were noted in her work-up. She had to come to [place] to bring her daughter to college. She notes that the pain was so strong that they tried injectable pain medication and this did not work. She suffers from constipation and last moved her bowels yesterday. On her home med list, she is taking Famotidine 20 mg daily and Omeprazole 20 mg daily. She takes Zoloft 25 mg daily. She was recently prescribed antibiotics (Cefpodoxime). CBC, CMP unremarkable from GI standpoint. CT questioned a possible enteritis. CTE showed fluid filled small bowel possibly related to enteritis vs normal small bowel. Allergies Allergy/AdvReac Type Severity Reaction Status Date / Time No Known Allergies Allergy Unverified 11/23/24 09:39 Home Medications Medication Instructions Recorded Confirmed Type cefpodoxime 200 mg tablet 200 mg PO BID 11/23/24 11/23/24 History famotidine 20 mg tablet 20 mg PO DAILY 11/23/24 11/23/24 History losartan 25 mg tablet 25 mg PO DAILY 11/23/24 11/23/24 History omeprazole 20 mg tablet,delayed 20 mg PO DAILY 11/23/24 11/23/24 History release sertraline 25 mg tablet (Zoloft) 25 mg PO DAILY 11/23/24 11/23/24 History Patient History Social History Smoking Status: Never smoker Hx Alcohol Use: No Hx Substance Use: No Preferred Language: Maltese Communication Ability: Effective Director Media Required: Yes Beliefs That Will Affect Care: None Current Living Situation Comment: lives with brother/grandaughter Other Information That Helps Us Care for You: No Feels Safe at Home: Yes Safety Concerns: Feels Safe At This Time Assistive Devices: None Assistive Devices Comment: reading glasses Review of Systems Constitutional: no fever and no chills Gastrointestinal: + abdominal pain and + constipation; no diarrhea/loose stools Physical Exam Physical Exam: Conducted by Dr. Mayberry Constitutional: well developed Respiratory: normal respiratory effort Cardiovascular: Rate/Rhythm: regular rate Gastrointestinal (Abdomen): left sided abdominal tenderness Psychiatric: Orientation: alert and oriented x 3 Results & Data Vital Signs (Past 12 Hours) Vital Signs Temp Pulse Pulse Resp BP BP Pulse Ox 11/23/24 08:03 61 20 124/76 95 11/23/24 06:00 71 16 142/88 H 98 11/23/24 05:11 71 16 139/83 95 11/23/24 03:45 68 11/23/24 03:41 71 20 95 11/23/24 03:27 71 20 115/59 L 95 11/23/24 03:14 36.9 C 73 22 100/64 96 O2 Del Method 11/23/24 08:03 Room Air 11/23/24 06:00 Room Air 11/23/24 05:11 11/23/24 03:45 11/23/24 03:41 Room Air 11/23/24 03:27 Room Air 11/23/24 03:14 Room Air PG Care Time/CCT Total # of Minutes Spent Total Time Spent with Patient: Total time spent is greater than 50% in coordination of care (as documented) at patient's floor/unit and/or counseling patient: Coding Level of Care Code 17804 IN/OBS CONSULT LVL 4,60M Diagnoses Abdominal pain R10.9
[2024-11-23 13:15] LABS: Appearance Urine Clear (Clear); Glucose Urine UA Negative (Negative)
[2024-11-23] MEDS: DICYCLOMINE HCL 10 MG CAP PO SCH (13:21)
--- NOTE | 2024-11-23 13:31 | Hospitalist Progress Note ---
Date of Service November 23, 2024 Assessment & Plan (1) Costochondritis, acute: (2) Irritable bowel syndrome: (3) Suspected UTI: Plan A more detailed physical exam highly suspect patient's most severe pain is due to a costochondritis/strain sprain of her lower left ribs. This is where she is exquisitely tender. Trial of Lidoderm patch, scheduled Tylenol, as needed ibuprofen Also suspect patient may have an acute flare of some irritable bowel, exacerbated by her different international diets over the past few weeks specifically since this started during her trip to [place]. Will transition to oral medications, Pepcid, Bentyl as recommended by GI. I will also schedule MiraLAX. Reviewed WRAPPER HAND consultation, no evidence of WRAPPER HAND infection or acute process Continue Rocephin, monitor urine culture Instructed patient to anticipate discharge tomorrow Admission and Anticipated Discharge Date Admission Date: November 23, 2024 Subjective Patient seen and evaluated with a Sinhala video geological scout. Patient continued with left sided flank and abdominal pain. Patient states that it started about 3 weeks ago when she was in [facility]. She denies diarrhea, nausea, vomiting, fevers. She denies any traumatic events or any heavy lifting, pushing, pulling, or activities. Patient states that the pain is essentially continuous. The medication she has been given has not helped a whole lot. Definitely worse when she moves. Physical Exam Physical Exam: Constitutional: Alert, nontoxic HEENT: Mucous membranes moist. Lungs: Clear to auscultation, decreased, no wheezes rales or rhonchi CV: S1-S2, regular Abdomen: Soft, some mild suprapubic tenderness, no left upper quadrant tenderness Musculoskeletal: Patient is exquisitely tender to palpation of the lower ribs 10, 11 and 12 on the left. Along with the left chest wall cartilage. This exactly reproduces her pain. Extremities: No significant edema Neuro: No focal deficits Psych: Cooperative, normal mood Results & Data Results & Data Vital Signs (Past 12 Hours) Vital Signs Temp Pulse Pulse Resp BP BP Pulse Ox 11/23/24 08:03 61 20 124/76 95 11/23/24 06:00 71 16 142/88 H 98 11/23/24 05:11 71 16 139/83 95 11/23/24 03:45 68 11/23/24 03:41 71 20 95 11/23/24 03:27 71 20 115/59 L 95 11/23/24 03:14 36.9 C 73 22 100/64 96 O2 Del Method 11/23/24 08:03 Room Air 11/23/24 06:00 Room Air 11/23/24 05:11 11/23/24 03:45 11/23/24 03:41 Room Air 11/23/24 03:27 Room Air 11/23/24 03:14 Room Air Diagnostic Findings Reviewed imaging, laboratory and diagnostic studies. Pertinent findings as below. CT enterography showed no evidence of obstruction Critical Care Time Prolonged Care Time 40 minutes of prolonged care with reevaluation of the patient, reviewing specialist recommendations, interpretation of the new data and decision making
[2024-11-23] MEDS: KETOROLAC 30 MG/ML VIAL IV ONE (14:22)
[2024-11-23] MEDS: ACETAMINOPHEN 500 MG TAB PO SCH (14:22)
[2024-11-23] MEDS: POLYETHYLENE (MIRALAX) 17 GM PACK PO SCH (14:22)
[2024-11-23] MEDS: LIDOCAINE 5% 1 PATCH TD SCH (15:37)
[2024-11-23] MEDS: IBUPROFEN 600 MG TAB PO PRN (19:47)
[2024-11-23] MEDS: FAMOTIDINE 20 MG TAB PO SCH (19:48)
[2024-11-23] MEDS: FAMOTIDINE 20 MG TAB ONE (19:49)
[2024-11-23] MEDS: REMOVE LIDODERM PATCH SCH (23:41)
[2024-11-24 07:11] LABS: Hematocrit (blood only) 40.8 % (37.0-47.0); Hemoglobin 14.7 g/dl (12.0-16.0); Mean Corpuscular Hemoglobin 31.7 pg (25.0-34.0); Mean Corpuscular Volume 88.1 fL (80.0-100.0); Platelet Count 245 K/uL (130-400); RDW Standard Deviation 41.5 fL (36.4-46.3); Red Blood Count 4.63 M/uL (4.20-5.40); White Blood Count 8.49 K/ul (4.8-10.8)
[2024-11-24 07:30] LABS: Alanine Aminotransferase 19.0 U/L (7-52); Albumin Globulin Ratio 1.8 (0.9-2); Alkaline Phosphatase 81.0 U/L (34-104); Anion Gap 6.0 (3-11); Bilirubin,Total 0.7 mg/dl (0.2-1.0); Blood Urea Nitrogen 17.0 mg/dl (6-23); Calcium 9.2 mg/dl (8.6-10.3); Carbon Dioxide 26.0 mmol/L (21-32); Chloride 96.0 mmol/L (98-107); Creatinine Clr Calc Pharmacy 70.8 ml/min; Globulin 2.3 gm/dl (2.5-4.0); Glucose 97.0 mg/dl (70-99(Fasting)); Potassium 4.2 mmol/L (3.5-5.1); Sodium 128.0 mmol/L (136-145); Total Protein 6.4 gm/dl (6.0-8.3)
[2024-11-24] MEDS: SERTRALINE HCL 50 MG TABLET PO SCH (09:11)
--- NOTE | 2024-11-24 11:00 | Discharge Summary ---
Discharge Summary Date of Service November 24, 2024 Principal Dx & Hospital Course #1 = Principal Diagnosis (1) Costochondritis, acute: (2) Irritable bowel syndrome: (3) Suspected UTI: (4) Generalized anxiety disorder: Plan Patient 54-year-old female who Has been having complaints of abdominal pain for at least the last 3 weeks. She also has been doing some extensive traveling over the last 3 weeks. She was then in [facility] when the pain started she then subsequently flew back to [place] and then flew to [place] in that amount of time. Patient reports that the pain has kind have been continuous since then. She was seen in an emergency department in [place] and was diagnosed with a urinary tract infection and was given some antibiotics. Travel to [place] and immediately came to the emergency room because she had continued abdominal pain. Emergency room was unremarkable for acute findings. But was admitted for further evaluation. Additional CT imaging did not reveal any signs of obstruction. GI consultation was obtained and recommended some Bentyl for some abdominal spasms. Patient was seen by DRIVING TEACHER for concerns of possible pelvic infection. This was ruled out and there was no evidence of any type of PURIFICATION OPERATOR HELPER illness. She was treated with antibiotics for presumed UTI. On additional history and more detailed exam it was found that her severe left upper quadrant pain was really exquisite tenderness on the lower ribs and cartilage associated with ribs 10,11 and 12. On exam this is much more consistent with a rib strain and costochondritis. She was given IV Toradol x 1 dose and started on lidocaine patch. This significantly improved her left-sided pain. Bentyl seem to help with some of her abdominal distention and bloating. I suspect the patient has a flare of some irritable bowel symptoms due to her travel and eating food that is not typical for her over the last few weeks. I also suspect the patient sustained a strain of her ribs with carrying all the luggage over the last couple weeks reaching up and overhead bins and pulling down luggage and pulling luggage off of luggage [employer] at airports. I reviewed all this with her at the time of discharge. This was assisted through video industrial arts public school teacher. She did share with me her urine culture from [place] grew out Streptococcus. Patient will be discharged with treatment for her costochondritis with anti-inflammatories and Lidoderm. Prescription for levofloxacin to treat her UTI and some Bentyl and acid reducers for her irritable bowel as well as MiraLAX for bowel regularity. Instructed her to follow-up with her PCP when she returns home. Notes For Next Care Provider Continue to manage chronic medical issues Medication Changes From Visit Sertraline dose increased to manage some irritable bowel symptoms MiraLAX and Bentyl for irritable Ibuprofen for costochondritis Lidoderm patch for costochondritis Levaquin for UTI Admission HPI Per Admitting Provider 54-year-old female unassigned patient with past med history significant for h ypertension, GERD, depression presents with severe abdominal pain in the left upper quadrant. Patient is having this abdominal pain for last 3 weeks. It started when they were in [place]. She is from [facility] area. She was in [place] ER couple of times. She was prescribed oxycodone. Last time in ER at [place] was recommend admission for IV pain meds but patient has to come to [place] for her daughters school and did not get admitted. Patient is Kiswahili- speaking. Daughter is helping with history. They came to [place] for daughter school. Having severe pain in left upper quad abdominal . Associated with nausea. Constipated. Had bowel movement yesterday. Denies any blood in the stools. Micturating okay. No fevers. No chest pain or shortness of breath. No headache or runny nose or sore throat or cough. Hemodynamics are okay. Past medical history. As mentioned above. Past surgical history. Colonoscopy. Tonsillectomy. Breast surgery. Social history. No smoking. Alcohol rarely. No drug use. Family history. Mother had stroke. Admission Exam Per Admitting Provider See H&P Discharge Exam Constitutional: Alert, nontoxic, no acute distress HEENT: Mucous membranes moist. Lungs: Clear to auscultation, decreased, no wheezes rales or rhonchi CV: S1-S2, regular Abdomen: Soft, nontender, mild bloating Musculoskeletal: Exquisite tenderness on the left lateral ribs 10, 11, 12 improved but still present Extremities: No significant edema Neuro: No focal deficits Psych: Cooperative, normal mood Updated Medication List Medication Instructions Recorded Confirmed Type cefpodoxime 200 mg tablet 200 mg PO BID 11/23/24 11/23/24 History losartan 25 mg tablet 25 mg PO DAILY 11/23/24 11/23/24 History omeprazole 20 mg tablet,delayed 20 mg PO DAILY 11/23/24 11/23/24 History release acetaminophen 500 mg tablet 1,000 mg (2 x 500 mg) PO TID #100 11/24/24 Rx (Tylenol Extra Strength) tabs dicyclomine 10 mg capsule 10 mg PO QID PRN Abdominal 11/24/24 Rx Distention #20 caps famotidine 20 mg tablet 20 mg PO BID #60 tabs 11/24/24 Rx ibuprofen 600 mg tablet 600 mg PO Q8H PRN pain #20 tabs 11/24/24 Rx levofloxacin 500 mg tablet 500 mg PO DAILY 3 days #3 tabs 11/24/24 Rx lidocaine 5 % topical patch 1 patch transdermal QAM #20 ea 11/24/24 Rx polyethylene glycol 3350 17 gram 17 g PO DAILY #30 ea 11/24/24 Rx oral powder packet (Miralax) sertraline 25 mg tablet (Zoloft) 50 mg (2 x 25 mg) PO DAILY #60 tabs 11/24/24 Rx Hospital Stay Data Consultations 11/23/24 05:46 ED Decision to Admit Stat 11/23/24 08:03 Consult Gastroenterology Routine 11/23/24 08:11 Consult Obstetrics Routine Diagnostic Imagining Performed 11/23/24 03:43 CT abd pelvis IV con only Stat 11/23/24 06:09 CT enterography Urgent Reviewed imaging, laboratory and diagnostic studies. Pertinent findings as below. CT enterography showed no signs of infection Urine culture pending CBC within normal ranges Sodium 128 Potassium 4.2 Creatinine 0.84 LFTs within normal range Pending Results Patient Have Any Pending Studies at Discharge: Yes Discharge Instructions Given to Patient (Per Discharging Provider) Anticipate it will take another couple weeks for your rib strain and pain to improve Anticipate your stomach issues to improve as you get back to your usual diet Complete the course of antibiotics I increased your sertraline, this sometimes helps with abdominal issues and irritable bowel Total Time Total Time Spent Total Time Spent (In Minutes): 34
--- NOTE | 2024-11-26 09:09 | Electrocardiogram Report ---
Test Reason : Blood Pressure : */* mmHG Vent. Rate : 70 BPM Atrial Rate : 70 BPM P-R Int : 154 ms QRS Dur : 84 ms QT Int : 412 ms P-R-T Axes : -27 -12 -23 degrees QTcB Int : 444 ms Normal sinus rhythm Inferior infarct , age undetermined Abnormal ECG No previous ECGs available Confirmed by Dusty Gonzales ([id number]) on 11/26/2024 9:09:18 AM Referred By: REFERRED SELF Confirmed By: Dusty Gonzales
== END 2024-11-24 12:59 | disposition home or self-care (01) ==
LOC: ED 03:10 → INTOOBSV 06:13 → EDINP 06:13 → SUATTDRO 06:13 → 3E 07:52